=== PATIENT | male | born 1960 | race Caucasian/White ===

== ENCOUNTER 2022-10-10 09:14 | Outpatient (CLI) | payer OTHER, SELFPAY ==
--- NOTE | 2022-10-10 09:15 | MR_ITS ---
[address] [address] Phone:?[phone] Fax:?[phone] Referring Physician Information: Dami Ram [address] [facility] [address] Phone:?[phone] Fax:?[phone] Patient:Amber Arreaga D.O.B:?1960 Sex:?Male Phone:?[phone] [facility] MRN:?[id number] Exam Date:?10/10/2022 ? EXAM: MRI of the LEFT SHOULDER, without contrast CLINICAL: Left shoulder pain. Evaluate supraspinatus. COMPARISONS: None available. TECHNICAL: MRI sequences of the left shoulder: Axials: PD, PDFS Coronals: PD, T2FS Sagittals: PDFS, T2 SEDATION: None. CONTRAST: None. FINDINGS: Rotator cuff: Supraspinatus/Infraspinatus: There is mild tendinosis with mild partial interstitial insertional tearing of the distal supraspinatus and infraspinatus tendons. Bursal surface fraying is also seen to involve the distal supraspinatus tendon. No significant fatty atrophy of the muscle bellies. Teres minor: No tendinosis, tear or atrophy. Subscapularis: Mild tendinosis of the distal tendon with mild partial interstitial insertional tearing of the distal tendon seen on sagittal series 8 image 11. No significant fatty atrophy of the muscle belly. Bursae: Subacromial-subdeltoid: Minimal bursal edema. Subcoracoid: No significant bursal fluid. Coracoacromial arch: Acromion morphology: Type II. No os acromiale. Acromiohumeral space: Within normal limits. Coracohumeral space: Within normal limits. Biceps tendon, long head: Mild tendinosis of the intra-articular tendon. No significant tendon tear or displacement. Glenohumeral joint: Physiologic volume of joint fluid. Articular cartilage: Evaluation is relatively limited. There does however appear to be high-grade chondral thinning involving the anterosuperior glenoid on axial series 9.2 images 44-45. Capsule: No convincing evidence of capsular thickening or injury. Labrum: There is tearing throughout the superior labrum extending into the posterior superior labrum with small paralabral cyst formation noted about the posterior superior labrum as seen on coronal series 4 images 11-18 and axial series 9.2 images 44-45. Bones: Please see below for findings involving the AC joint. Osseous lesion is noted involving the superior scapular spine measuring approximately 18 mm in transverse dimension as seen on coronal series 4 images 16-17. Remaining imaged osseous structures are intact. Acromioclavicular joint: Moderate to advanced changes of arthrosis with prominent reactive marrow edema involving the distal clavicle and acromion about the articulation. No AC joint widening. IMPRESSION: 1. Mild tendinosis with mild partial tearing of the distal supraspinatus, infraspinatus and subscapularis tendons. Bursal surface fraying also involves the distal supraspinatus tendon. No full-thickness or retracted rotator cuff tendon tear. 2. Mild tendinosis of the intra-articular long head biceps tendon. 3. Tearing throughout the superior labrum extending into the posterior superior labrum with small paralabral cyst formation noted about the posterior superior labrum. 4. Moderate to advanced changes of AC joint arthrosis with reactive marrow edema about the articulation. 5. Apparent high-grade chondral thinning involving the anterosuperior glenoid. 6. Approximately 18 mm osseous lesion within the superior scapular spine is indeterminate but likely benign. As a precaution, consider follow-up MRI in approximately 3-6 months to document stability. JCZ Electronically signed on 10/10/2022 11:28:00 AM by Devin Covarrubias D.O.
== END 2022-10-10 09:15 | disposition home or self-care (01) ==
LOC: MRI 09:15
PROVIDERS: Visit Provider Physician Assistant
DX: M25.512 Pain in left shoulder (principal); M75.102 Unspecified rotator cuff tear or rupture of left shoulder, not specified as traumatic; S43.432A Superior glenoid labrum lesion of left shoulder, initial encounter
CPT/HCPCS: 73221

== ENCOUNTER 2023-02-21 15:07 | Outpatient (CLI) | payer OTHER, SELFPAY ==
--- NOTE | 2023-02-21 15:30 | MR_ITS ---
[address] [address] Phone:?[phone] Fax:?[phone] Referring Physician Information: Dami Ram [address] [facility] [address] Phone:?[phone] Fax:?[phone] Patient:Amber Arreaga D.O.B:?1960 Sex:?Male Phone:?[phone] [facility] MRN:?[id number] Exam Date:?02/21/2023 EXAM: MRI of the LEFT SHOULDER, without contrast CLINICAL HISTORY: Osseous lesion within the superior scapular spine. Left shoulder pain. COMPARISONS: MRI 10/10/2022. Plain radiographs 07/03/2022. TECHNICAL: MRI sequences of the left shoulder: Axials: PD, T2 Coronals: PD, STIR, T2 Sagittals: PD, T2 SEDATION: None CONTRAST: None FINDINGS: Bones: The approximately 1.1 cm in AP dimension by 1.0 cm in AP dimension by 1.8 cm in transverse dimension T2/STIR hyperintense lesion within the superior aspect of the scapular spine is unchanged compared to previous MRI 10/10/2022. This lesion is well marginated and has a narrow zone of transition. No associated soft tissue mass is seen. Coracoacromial arch: Acromion: No os acromiale. Type II acromion. Acromiohumeral space: The bony distance is unremarkable. Coracohumeral space: The bony distance is unremarkable. Acromioclavicular joint: Moderate degenerative changes with substantial adjacent distal clavicular and acromial bone marrow edema, unchanged compared to previous MRI 10/10/2022. Coracoclavicular ligament: The coracoclavicular ligament is intact. Rotator cuff muscles/tendons: Supraspinatus: There is a 5 mm in AP dimension by 12 mm in transverse dimension concealed slitlike intrasubstance tear within the supraspinatus tendon insertion that runs along the cortical insertional surface and is superimposed upon mild supraspinatus tendinopathy, unchanged compared to previous MRI 10/10/2022. Infraspinatus: The infraspinatus tendon and muscle are intact. Teres minor: The teres minor tendon and muscle are intact. Subscapularis: Interstitial delamination and mild tendinopathy of the subscapularis tendon, unchanged compared to previous MRI 10/10/2022. Labrum and glenohumeral joint: Type II SLAP tear from the 12 o'clock position through 9 o'clock position posteriorly with a 3 x 1 x 3 mm paralabral cyst at the 11 o'clock position posterosuperiorly and a 4 x 3 x 5 mm paralabral cyst at the 9 o'clock position posteriorly, unchanged compared to previous MRI 10/10/2022. Physiologic amount of joint fluid. No discrete chondral defect or subchondral bone marrow edema/cystic change is seen. No convincing evidence of capsular edema or thickening although evaluation is suboptimal because of lack of joint distention. Proximal biceps tendon, long head and short heads: The long and short heads of the proximal biceps tendon are intact. Bursae: Subacromial/subdeltoid: Minimal edema-like signal within the subacromial/subdeltoid bursa. Subcoracoid: No convincing subcoracoid bursal thickening/bursitis. IMPRESSION: 1. Approximately 1.1 x 1.0 x 1.8 cm T2/STIR hyperintense well marginated lesion within the superior aspect of the scapular spine, unchanged compared to previous MRI 10/10/2022. No aggressive imaging feature is seen although the lesion remains indeterminate. Another follow-up MRI is recommended in 6 months to evaluate for any unexpected change. 2. 5 x 12 mm concealed slitlike intrasubstance tear within the supraspinatus tendon insertion runs along the cortical insertional surface and is superimposed upon mild supraspinatus tendinopathy, unchanged compared to previous MRI 10/10/2022. 3. Interstitial delamination and mild tendinopathy of the subscapularis tendon, unchanged compared to previous MRI 10/10/2022. 4. Moderate acromioclavicular joint osteoarthritis with substantial adjacent distal clavicular and acromial bone marrow edema; correlate with any point tenderness and clinical signs and symptoms. 5. Type II SLAP tear from the 12 o'clock position through 9 o'clock position posteriorly with a 3 x 1 x 3 mm paralabral cyst at the 11 o'clock position posterosuperiorly and a 4 x 3 x 5 mm paralabral cyst at the 9 o'clock position posteriorly, unchanged compared to previous MRI 10/10/2022. 6. Intact biceps tendon. RCB Electronically signed on 02/22/2023 8:09:00 AM by Niko Montoya M.D.
== END 2023-02-21 15:08 | disposition home or self-care (01) ==
LOC: MRI 15:07
PROVIDERS: PCP Physician Assistant; Visit Provider Physician Assistant
DX: M25.512 Pain in left shoulder (principal); M75.102 Unspecified rotator cuff tear or rupture of left shoulder, not specified as traumatic; M19.012 Primary osteoarthritis, left shoulder; S43.432A Superior glenoid labrum lesion of left shoulder, initial encounter
CPT/HCPCS: 73221

== ENCOUNTER 2023-04-01 06:05 | Day surgery (SDC) | payer OTHER, SELFPAY ==
[2023-04-01] VITALS (14 sets, daily range): BP systolic 90–120; BP diastolic 49–77; PULSE 53–75; RESP 12–16; TEMP 36.2–36.5; O2SAT 92–96; BMI 32.1
[2023-04-01] MEDS: LACTATED RINGERS 1000 ML 1,000 ML 100 ML IV (06:35)
[2023-04-01] MEDS: SODIUM CHLORIDE 0.9 % (FLUSH) 10 ML SYRINGE IVF (06:35)
[2023-04-01] MEDS: CELECOXIB 200 MG CAPSULE PO (06:44)
[2023-04-01] MEDS: OXYCODONE (CR) 10 MG TAB.ER.12H PO (06:44)
[2023-04-01] MEDS: ACETAMINOPHEN 500 MG TABLET 1000 MG PO (06:44)
[2023-04-01] MEDS: fentaNYL 100 MCG/2 ML inj IVP (07:12)
[2023-04-01] MEDS: MIDAZOLAM HCL 1 MG/ML inj IVP (07:12)
--- NOTE | 2023-04-01 07:13 | SUR.PREOP ---
TIME?OUT:?0711 PT/Jennifer Negron RN/Dr. Roque MDA?VERIFICATION?OF?SURGICAL?SITE left shoulder,?PROCEDURE,?AND?CONSENT OBTAINED?PRIOR?TO?INVASIVE?PROCEDURE.
[2023-04-01] MEDS: CEFAZOLIN 2 GM INJ IVP (07:36)
[2023-04-01] MEDS: EPINEPHrine 1 MG in SODIUM CHLORIDE IRRIG SOLUTION 3,000 ML 3001 MG IRRIGATION ×5 (08:00→08:45)
[2023-04-01] MEDS: LACTATED RINGERS 1000 ML 1,000 ML 75 ML IV (08:30)
--- NOTE | 2023-04-01 08:43 | P.NB_ITS ---
Nerve Block Nerve Block Time Seen by Provider: 07:14 Date Seen: 04/01/23 Type of block requested by surgeon for post-operative analgesia: supraclavicular Side: left Time out performed: Yes Verification of patient name: Yes Verification of date of : Yes Site marking: site marked Name of person performing procedure: Roque Continuous monitoring Was continuous monitoring of O2 sat, B/P, clinical research monitor, recorded every 15 minutes?: Yes Procedure Checklist: sterile prep, needles and gloves Ultrasound guided. Images saved: Yes Medications given in 5ml increments after negative aspiration: Ropivicaine %: 0.5 mL: 20 Needle gauge: 22 Decadron (mg): 10 Precedex (mcg): 25 Patient tolerated procedure well: Yes Block Charges Block Charge (with Pro Fee): Brachial Plexus Use of Ultrasound Machine for Block: Yes- US Guidance/pain block
--- NOTE | 2023-04-01 09:04 | P.ORPRC_ITS ---
Procedure Note Date of procedure: 04/01/23 Procedure: PREOPERATIVE DIAGNOSIS: Left shoulder intrasubstance rotator cuff tear, AC joint arthrosis, labral tearing POSTOPERATIVE DIAGNOSIS: Left shoulder high-grade partial-thickness bursal surface supraspinatus tear, AC joint arthrosis, labral tearing NAME OF OPERATION: Left shoulder arthroscopic subacromial decompression, distal clavicle excision, arthroscopic rotator cuff repair, labral debridement SURGEON: Ubaldo Dobbins MD DIRECTOR OF LABOR RELATIONS: Aida Rainey PA-C ANESTHESIA: Supraclavicular block plus general endotracheal ESTIMATED BLOOD LOSS: 5 mL COMPLICATIONS: None SPECIMENS: None DRAINS: None PREOPERATIVE ANTIBIOTICS: Ancef 2 grams INDICATIONS: The patient is a 62-year-old with a history of left shoulder pain secondary to the above diagnoses. Despite appropriate non operative management, they continue to have symptoms. Operative intervention was recommended. The risks, benefits and expected outcomes were discussed in detail. These included but were not limited to: Infection, bleeding, injury to blood vessel or nerve, venous thromboembolism. All questions were answered to their satisfaction. PROCEDURE: A supraclavicular block was placed by Anesthesia. General anesthesia was administered. The patient was placed in the high beach chair position. The left shoulder was prepped and draped in the usual sterile fashion. The glenohumeral joint was infiltrated with 20 mL of normal saline with ep inephrine. The posterior portal was established, the arthroscope was introduced. The anterior portal was established, Diagnostic arthroscopy was performed with findings as follows: The biceps and biceps anchor are intact. The anterior, posterior and superior labrum show age-appropriate degenerative fraying, no obvious paralabral cyst. Articular surfaces on the humeral head and glenoid are normal. There are no loose bodies. There is partial thickness tearing of the insertion of the supraspinatus. The labrum was debrided with the shaver. Likewise, the joint surface of the supraspinatus was debrided with the shaver. The arthroscope was placed in the subacromial space, the lateral portal was established. The Arthrex [place] was used to dissect the acromion free. The CA ligament was recessed off the anterior acromion, the AC joint was exposed. The acromioplasty was performed with the bur in the posterior portal. The bur was then placed in the lateral portal and the lateral and anterior aspect of the acromion were resected. The undersurface of the distal clavicle was resected through the lateral portal. Finally, the bur was placed in the anterior portal and the remainder of the distal clavicle was resected for a total of 10 mm. An accessory anterolateral portal was placed. The subacromial/subdeltoid bursa was aggressively debrided. The bursal surface of the insertion of the supraspinatus is quite thin with just a few fibers attached. These were debrided with the shaver, resulting in a near full-thickness tear of the insertion of the supraspinatus. Some of the joint surface insertion is good quality tissue and intact. Therefore, this was left alone. The greater tuberosity was debrided with the shaver. The Arthrex Guzman stitch was used to pass 1 limb of a FiberTape through the posterior aspect of the leading edge of the supraspinatus. It was then used to pass the other end of FiberTape through the anterior aspect of the tear. Finally, we used the scorpion to pass a FiberLink through the central aspect of the leading edge of the supraspinatus. These 3 sutures were placed in a single, lateral row BioComposite SwiveLock anchor. This provides an anatomic, watertight repair of the rotator cuff. There is no tension on the repair with the shoulder at 0? abduction. Portals were closed with a 3-0 Monocryl in a subcuticular fashion. A dry dressing, polar care and sling were applied. Sponge and needle counts were correct x2. The patient tolerated the procedure well. There were no apparent complications. They were carefully transferred to the hospital bed and taken to the postanesthesia care unit in satisfactory condition. PLAN: The patient will be discharged to home. No active range of motion of the shoulder will be allowed for 6 weeks postoperatively. They can work on active range of motion of the elbow, wrist and fingers. They will follow up in the office next week for a wound check and an AP and transscapular Y-view of the shoulder prior to being seen.
--- NOTE | 2023-04-01 09:27 | W.ANESCHARGE ---
Anesthesia Charges Start Date/Time Anesthesia Start Date: 04/01/23 Anesthesia Start Time: 07:22 Stop Date/Time Anesthesia Stop Date: 04/01/23 Anesthesia Stop Time: 09:30
--- NOTE | 2023-04-01 09:34 | W.ANESCHARGE ---
Anesthesia Charges Start Date/Time Anesthesia Start Date: 04/01/23 Anesthesia Start Time: 07:22 Stop Date/Time Anesthesia Stop Date: 04/01/23 Anesthesia Stop Time: 09:30
== END 2023-04-01 11:35 | disposition home or self-care (01) ==
PROVIDERS: PCP Physician Assistant; Visit Provider Orthopaedic Surgery
PROC: (CPT 23412; principal; 2023-04-01 07:15)
DX: M75.102 Unspecified rotator cuff tear or rupture of left shoulder, not specified as traumatic (principal); M19.012 Primary osteoarthritis, left shoulder; S43.492A Other sprain of left shoulder joint, initial encounter; G89.18 Other acute postprocedural pain
CPT/HCPCS: 29826; 29827; 29824; 29822; 1630; 64415; 76942; A9270; C1713; J0171; J0330; J0690; J1100; J1170; J2250; J2371; J2405; J2704; J2795; J3010; J3490; J7120